=== PATIENT | female | born 1980 | race Caucasian/White ===

== ENCOUNTER 2017-11-17 12:00 | Inpatient (IN) | payer OTHER, SELFPAY ==
[2017-11-17 12:07] VITALS: BMI 37.1
[2017-11-17] MEDS: Lactated Ringers 1,000 ML 50 ML IV ×2 (12:30→14:02)
[2017-11-17] MEDS: Oxytocin 30 units/NS 500 ml 30 UNITS/500 ML IV.SOLN IV (12:50)
[2017-11-17 12:57] LABS: Hematocrit 34.4 % (37-47); Hemoglobin 11.1 g/dl (12.0-15.0); Mean Corp Hgb Conc 32.3 g/gl (32-36); Mean Corpuscular Volume 86.9 fL (81-99); Mean Platelet Vol. 11.6 fl (6.2-12.0); Platelet Count 121 K/mm3 (150-450); RBC Distribution Width SD 44.4 fl (35.1-43.9); Red Blood Count 3.96 M/mm3 (4.2-5.4); White Blood Count 10.3 K/mm3 (4.4-11.0)
[2017-11-17 13:00] LABS: Scan Indicated on CBC? Y/N NO
--- NOTE | 2017-11-17 13:06 | PCM.HP.OB ---
History Date of Admission: 11/17/17 Final BRITTANY: 11/15/17 Final BRITTANY Source: LMP Gestational age: 40 Weeks and 2 Days History of this : This is a 37 year-old, G 3, P2, at 40.2 weeks gestational age here for IOL for post EDC, AMA and favorable cervix. Pt offers no other concerns today. Allergies Penicillins Adverse Reaction (Verified 11/17/17 12:34) Itching Home Medications: Home Medications Pnv with Ca,No.72/Iron/FA [ Plus Tablet] 05/16/15 Famotidine [Pepcid AC] 10 mg PO 11/17/17 PNV Smoking Status: Former smoker Alcohol: None Substance Use Type: Marijuana - prior to - none during Number of Fetus(es): 1 Heart Tracin mod sharri, + accels, no decels TOCO Analysis: occasional History Past Pregnancies: Past Pregnancies Delivery Date Name GA/Weeks Outcome Route Weight Gender Labor Length Anesthesia Delivery Location Provider FOB Labs: O+, HIV neg, HEP B neg, rub imm, syphilis neg, GBS neg Expected Infant Delivery Method: Spontaneous Vaginal Review of Systems Constitutional: Denies: Anorexia Cardiovascular: Denies: Chest Pain Respiratory: Denies: Cough Gastrointestinal: Denies: Abdominal Pain Physical Exam General: Alert, Oriented x3 Abdomen: Soft, Non Tender, Gravid Neurological: Cranial nerves II-XII grossly intact MECHANICAL ADJUSTER: Normal external genitalia Estimated gestational size: Appropriate for gestational size Presentation: Cephalic Cervix Dilation (cm): 4 Station: -2 Effacement (%): 70 Assessment/Plan This is a 37 year-old, G 3 P2, at 40.2 weeks gestational age IOL for AMA, Post EDC, favorible cervix 1) admit 2) monitor fhr/toco 3) AROM and pitocin 4) epidural 5) anticipate .
[2017-11-17] MEDS: Mag Hydrox/Al Hydrox/Simeth 30 ML UDC PO (15:13)
[2017-11-17] MEDS: fentaNYL-bupivacaine (epidural) 100 ML BAG EPIDURAL (15:53)
--- NOTE | 2017-11-17 17:48 | PCM.PN.BLA ---
Progress Note pt seen at bedside, doing well. resting comfortable with epidural in place. VE: /+1. FHR tracing reviewed- continue pitocin at this time. anticipate
[2017-11-17] MEDS: Oxytocin 30 units/NS 500 ml 30 UNITS/500 ML IV.SOLN 334 UNITS IV (18:35)
--- NOTE | 2017-11-17 18:36 | PCM.OB.VAG ---
Vaginal Delivery Maternal Presentation: Elective Induction, - - AMA, Post EDC, favorable cervix Method of Induction: Pitocin, Amniotomy Amniotic Membrane Rupture Type: Artificial Amniotic Fluid Description: Clear Final BRITTANY: 11/15/17 Gestational age: 40 Weeks and 2 Days Date of Procedure: 11/17/17 Pre-Operative Diagnosis: AMA, Post EDC, favorable cervix Post-Operative Diagnosis: live male infant Surgery/ Procedure Performed: Spontaneous Vaginal Delivery Type of Anesthesia: Epidural Description of Procedure: of live male infant. Nuchal x 1, delivered prior to reduction of nuchal- Delayed cord clamping. No complication with delivery. Presentation: Vertex Placental Delivery Description: Spontaneous Placenta Disposition: [facility] Cord Vessel Description: 3 Vessels Nuchal Cord Compression: Without compression Cord Entanglement: Around neck x 1, loose Drain: Acharya to straight drain Estimated Blood Loss: 200 Infant A gender: Male (1 minute): 8 (5 minute): 9 Episiotomy Description: None Laceration: Perineal Extension/lac - repaired with 3-0 rapide, 1st degree Medications given after delivery: IV Pitocin Complications: None
[2017-11-17] MEDS: Oxytocin 30 units/NS 500 ml 30 UNITS/500 ML IV.SOLN 167 UNITS IV (19:05)
[2017-11-17] MEDS: 0.9% Saline Lock 10 ML Syringe IV (20:00)
[2017-11-17 23:15] VITALS: BP 109/53; PULSE 86; RESP 18; TEMP 36.4
[2017-11-18 03:30] VITALS: BP 107/56; PULSE 83; RESP 18; TEMP 36.5
[2017-11-18 07:36] VITALS: BP 107/63; PULSE 82; RESP 16; TEMP 36.6
--- NOTE | 2017-11-18 07:41 | PN.OBGYN_ITS ---
Subjective: Doing well per patient and nursing staff. Ambulating and taking PO without difficulty. Voiding and passing flatus. without complaints. Pain controlled without medication. Denies any headaches, visual changes, chest pain , shortness of breath, leg pain, increased bleeding or clots. Planning D/C home today. - Physical Exam General: Alert, Oriented x3, Cooperative Lungs: Clear to auscultation, Normal air movement, No rhonchi, No wheeze Cardiovascular: Regular rate, Regular Rhythm, No murmurs Abdomen: Bowel Sounds Present, Soft, Non Tender, - - Fundus firm 2 below U Extremities: Edema - +1 BLE non pitting Psych/Mental Status: Normal Affect, Appropriate Vital Signs Temp Pulse Resp BP 97.7 F L 83 18 107/56 L 11/18/17 03:30 11/18/17 03:30 11/18/17 03:30 11/18/17 03:30 Oxygen Delivery Method Room Air Weight: 237 lb 6.4 oz Body Mass Index (BMI) 37.1 Intake and Output for Last 24 Hours 11/16/17 11/17/17 11/18/17 23:59 23:59 23:59 Intake Total 1888 / 1888 Output Total 700 / 700 900 / 900 Balance 1188 / 1188 -900 / -900 Laboratory Tests Past 24 Hrs 11/17/17 11/17/17 12:30 12:30 WBC 10.3 RBC 3.96 L Hgb 11.1 L Hct 34.4 L MCV 86.9 MCH 28.0 MCHC 32.3 RDW 14.0 RDW Differential 44.4 H Plt Count 121 L MPV 11.6 Blood Type O POSITIVE Antibody Screen NEGATIVE Medical Necessity - Tobacco Use Smoking Status: Former smoker Assessment/Plan A: AMA PPD#1 P: 1) Routine care 2) D/C and instructions given 3) D/C home. Declines pain medication for discharge 4) Follow up in 6 weeks.
--- NOTE | 2017-11-18 07:58 | DCINST_ITS ---
Discharge Diet: No Restrictions Discharge Activity: Return to Normal Activity, May not drive while taking narcotic pain medications., May Shower May resume sexual activity in: 4-6 weeks Weight Bearing Status: Weight bearing as tolerated Call your doctor if your incision/area has: Continuous Slow Oozing, Sudden Increased Bleeding, Increased Pain/ Swelling, Increased Redness, Foul Smelling Discharge Call your doctor if you observe: Fever of 101 or Higher, Numbness or Tingling, Inability to urinate, Inability to have a bowel movement, Using more than one pad per hour, Shortness of breath, Increased palpitations (irregular heartbeat) , Calf discomfort, Uncontrolled pain Additional Instructions: If you experience any of the following, contact your healthcare provider. * Bleeding that soaks a pad every hour for 2 hours * Fever 100.4 or higher * Unrelieved incision or abdominal pain * Swelling, redness, discharge or bleeding from your incision or episiotomy site * Your incision begins to separate * Problems urinating (including inability to urinate or burning while urinating) . * Visual changes * Severe headache * Flu-like symptoms * Pain or redness in one of both of your breasts * Pain, warmth, tenderness or swelling in your legs, especially the calf area * Frequent nausea and vomiting * Symptoms of depression or anxiety If you experience any of the following, call 911 or go to the nearest Emergency Room. * Chest pain * Problems breathing * Seizure activity * Partial or complete paralysis of a body part, slurred speech, weakness or drooping of the face, or a sudden inability to walk or hold your balance Allergies/Adverse Reactions: Allergies Penicillins Adverse Reaction (Verified 11/17/17 12:34) Itching Medications to take at Discharge Pnv with Ca,No.72/Iron/FA [ Plus Tablet] 05/16/15 Acetaminophen [Tylenol] 1,000 mg PO Q8H PRN PRN tablet 11/18/17 Naproxen [Naprosyn] 250 - 500 mg PO Q8H PRN PRN tablet 11/18/17 Please Follow Up With: Angélica Alvarez MD When: Call to make an appointment with your doctor in 6 weeks. If you had elevated Blood Pressure or 4th degree laceration you will need to be seen in 2 weeks. Primary Care Physician: Alberto Razo III, MD [Primary Care Provider] - Test Results: Test results from this visit will be discussed in further detail at your follow- up appointment, if applicable.
[2017-11-18 12:09] VITALS: BP 102/59; PULSE 77; RESP 16; TEMP 36.9
[2017-11-18 15:44] VITALS: BP 122/56; PULSE 82; RESP 16; TEMP 36.3
[2017-11-18 20:16] VITALS: BP 117/55; PULSE 78; RESP 16; TEMP 36.6
--- NOTE | 2017-11-18 21:19 | NURSING ---
2114-discharged off unit in wheel chair with baby in car seat on pt's lap.
== END 2017-11-18 21:15 | disposition home or self-care (01) | DRG 775 ==
PROVIDERS: Admitting Provider Obstetrics & Gynecology; Family Provider Family Medicine; PCP Family Medicine; Visit Provider Obstetrics & Gynecology
DX: O48.0 Post-term pregnancy (principal); O70.0 First degree perineal laceration during delivery; O69.81X0 Labor and delivery complicated by cord around neck, without compression, not applicable or unspecified; Z3A.40 40 weeks gestation of pregnancy; Z87.891 Personal history of nicotine dependence; Z37.0 Single live birth
CPT/HCPCS: 59050; 85027; 86850; 86900; 99218; J7120; A4216; G0378